=== PATIENT | female | born 2000 | race Caucasian/White ===

== ENCOUNTER 2024-05-06 09:55 | Outpatient (CLI) | payer OTHER, SELFPAY | END 2024-05-06 09:56 | disposition home or self-care (01) | LOC: NFLDUCREF 09:56 | PROVIDERS: Visit Provider Nurse Practitioner | DX: L08.9 Local infection of the skin and subcutaneous tissue, unspecified (principal); S01.23XA Puncture wound without foreign body of nose, initial encounter; B95.7 Other staphylococcus as the cause of diseases classified elsewhere | CPT/HCPCS: 87070; 87186 ==